=== PATIENT | female | born 1975 | race Caucasian/White ===

== ENCOUNTER 2017-06-15 09:21 | Emergency (ER) | payer MEDICAID ==
[~2017-06-15] VITALS: Wt 61.0 kg
[~2017-06-15 09:21] MED LIST: NO MEDS TAKEN
[2017-06-15] MEDS ORDERED: ACETAMINOPHEN 325 MG TAB PO ONE (10:00)
--- NOTE | 2017-06-15 10:25 | RADRPT ---
PROCEDURE: XR Chest. CLINICAL INDICATION: cough TECHNIQUE: Single frontal view of the chest was obtained COMPARISON: None FINDINGS: The heart and mediastinum are within normal limits. There is a right lower lobe infiltrate. There is no pleural effusion or pneumothorax. RPTAT: AA IMPRESSION: Right lower lobe infiltrate. .August Navarro MD, MD Date Time Electronically viewed and signed by .August Navarro MD, on 06/15/2017 10:24 .S/
[2017-06-15] MEDS ORDERED: BENZ100C70 PO (10:43)
[2017-06-15] MEDS ORDERED: ACET500C5 PO (10:43)
[2017-06-15] MEDS ORDERED: AZIT250T94 PO (10:43)
--- NOTE | 2017-06-15 10:51 | ERD ---
ER Documentation Chief Complaint Date/Time DATE: 06/15/17 TIME: 10:47 Chief Complaint COUGH, CONGESTION, FEVER, ONSET 3 WEEKS HPI 42-year-old female patient with a past medical history of hyperlipidemia presents to the ED complaining of cough, congestion, fever intermittently for 3 weeks. Reports that she has tried taking neck and to call cough medication without relief of her symptoms. Reports that the cough is dry and constant. States that it was a gradual onset. Denies any recent traveling. Reports that she also has body aches. States that she has a sore throat and her symptoms have caused her to have decreased appetite however is still tolerating oral intake and eating appropriately. States that when she coughs, it causes her to have chest pain. Denies any dyspnea on exertion, wheezing, abdominal pain, nausea, vomiting, diarrhea, pleuritic chest pain, orthopnea, leg swelling. ROS All systems reviewed and are negative except as per history of present illness. Medications Home Meds Active Scripts Acetaminophen* (Tylophen*) 500 Mg Capsule, 1 CAP PO Q6H Y for PAIN AND OR ELEVATED TEMP, #20 CAP Prov:ROSANNA FAULKNER PA-C 06/15/17 Benzonatate* (Tessalon Perle*) 100 Mg Capsule, 100 MG PO Q8H Y for COUGH, #20 CAP Prov:ROSANNA FAULKNER PA-C 06/15/17 Azithromycin* (Zithromax*) 250 Mg Tablet, 250 MG PO .ZPACK DIRECTED, #6 TAB TAKE 500 MG (2 TABS) THE FIRST DAY THEN 250 MG (1 TAB) DAYS 2-5 Prov:ROSANNA FAULKNER PA-C 06/15/17 Reported Medications [No Meds Taken] No Conflict Check 03/12/12 Allergies Allergies: Coded Allergies: No Known Allergy (Unverified , 09/24/12) PMhx/Soc Medical and Surgical Hx: pt denies Medical Hx History of Surgery: Yes (3 c-sections) Anesthesia Reaction: No Hx Neurological Disorder: No Hx Respiratory Disorders: No Hx Cardiac Disorders: No Hx Psychiatric Problems: No Hx Miscellaneous Medical Probl: Yes (hx of bronchitis) Hx Alcohol Use: No Hx Substance Use: No Hx Tobacco Use: No Smoking Status: Never smoker Physical Exam Vitals Vital Signs Date Time Temp Pulse Resp B/P Pulse Ox O2 Delivery O2 Flow Rate FiO2 06/15/17 09:25 100.4 107 19 136/88 98 Physical Exam Const: Rbj-qda-lqatyzevb, well-nourished. In no acute distress. Head: Atraumatic, normocephalic Eyes: Normal Conjunctiva without injection. No purulent discharge. PERRL. EOMI ENT: Normal external ear. Ear canal without erythema. Tympanic membrane pearly lopez without effusion or bulging. Nasal canal clear with normal turbinates. Moist oropharynx without tonsillar exudates. Non-erythematous pharynx. Uvula midline. No drooling. No trismus. Neck: Full range of motion. No meningismus. No cervical lymphadenopathy. Resp: Clear to auscultation bilaterally. No wheezing, rhonchi, rales, or crackles. No accessory muscle use. No retractions. Cardio: Regular rate and rhythm. No murmurs, rubs or gallops. Abd: Soft, non tender, non distended. Normal bowel sounds. No palpable masses. No rebound tenderness. No guarding. Skin: No petechiae or rashes Back: No midline tenderness. No CVA tenderness. Ext: No cyanosis, or edema. Neur: Awake and alert. Psych: Normal Mood and Affect Results 24 hrs Current Medications Medications (Trade) Dose Ordered Sig/Mohini Route PRN Reason Start Time Stop Time Status Last Admin Dose Admin Acetaminophen (Tylenol Tab) 650 mg ONCE ONCE PO 06/15/17 10:00 06/15/17 10:01 DC 06/15/17 10:00 Procedures/MDM 42-year-old female patient with a past medical history of hyperlipidemia presents to the ED complaining of cough, congestion, fever intimately for 3 weeks. Patient has a fever of 100.4. Tylenol was ordered to further downtrend patient's temperature. Chest x-ray was ordered to further evaluate patient. Chest x-ray showed a right lower lobe infiltrate. Patient symptoms and chest x- ray findings are consistent with pneumonia. Patient is afebrile and has normal vital signs. Patient's physical exam include lungs which were clear to auscultation and a normal pulse oximetry. There is a low suspicion for pneumothorax, mononucleosis, pulmonary embolism, epiglottitis, otitis media, otitis externa, viral/strep pharyngitis, sinusitis, peritonsillar abscess, mastoiditis, retropharyngeal abscess, meningitis, sepsis, acute abdomen or other emergent conditions. Discharge medications: Zithromax, Tessalon Perles, Tylenol Patient was instructed to return to the ED for any new or worsening symptoms. They should otherwise follow up with the primary care provider within 1-2 days. The patient's questions were answered at the time of discharge. Patient understood and agreed with discharge management. Departure Diagnosis: Primary Impression: Pneumonia Pneumonia type: due to unspecified organism Laterality: right Lung location : unspecified part of lung Qualified Code: J18.9 - Pneumonia of right lung due to infectious organism, unspecified part of lung Condition: Stable Patient Instructions: Pneumonia (Adult) [facility] Usted se carter hecho un examen mdico de control que le indica que no est en max condicin que requiera tratamiento urgente en el Departamento de Emergencia. Un estudio ms profundo y el tratamiento de estevez condicin pueden esperar sin ningn riesgo hasta que usted sea atendida/o en el consultorio de estevez mdico o max cl jules. Es responsabilidad suya arreglar max kathryn para el seguimiento del eugenia. MANEJO DE CONDICIONES NO URGENTES EN EL FUTURO 1) Si usted tiene un mdico de atencin primaria: Usted debera llamar a estevez mdico de atencin primaria antes de venir al departamento de emergencia. Despus de las horas de consultorio, estevez doctor o estevez asociado/a est disponible por telfono. El mdico o enfermero de fritz en el servicio telefnico puede asesorarle por cass medio para atender el problema, o eugenia contrario se puede programar max kathryn. 2) Si usted no tiene un mdico de atencin primaria: Llame al mdico o clnica de referencia que aparece abajo maryann las horas de consultorio para hacer max kathryn para que le vean. CLINICAS: [facility] [phone] [facility] [phone] [facility] [phone] [address] [facility] [phone] [facility] [phone] [facility]. [phone] [facility] () Usted se carter hecho un examen mdico de control que le indica que no est en max condicin que requiera tratamiento urgente en el Departamento de Emergencia. Un estudio ms profundo y el tratamiento de estevez condicin pueden esperar sin ningn riesgo hasta que usted sea atendida/o en el consultorio de estevez mdico o max cl jules. Es responsabilidad suya arreglar max kathryn para el seguimiento del eugenia. MANEJO DE CONDICIONES NO URGENTES EN EL FUTURO 1) Si usted tiene un mdico de atencin primaria: Usted debera llamar a estevez mdico de atencin primaria antes de venir al departamento de emergencia. Despus de las horas de consultorio, estevez doctor o estevez asociado/a est disponible por telfono. El mdico o enfermero de fritz en el servicio telefnico puede asesorarle por cass medio para atender el problema, o eugenia contrario se puede programar max kathryn. 2) Si usted no tiene un mdico de atencin primaria: Llame al mdico o condado institucions de referencia que aparece abajo maryann las horas de consultorio para hacer max kathryn para que le vean. SI USTED NO PUEDE PAGAR PARA ROSEY UN MEDICO puede ir a: [facility] [address] [place] [address] [facility] [address] [place] [address] [facility] [address] [place] [address] [facility] [address], [place] [id number] [facility]SPECIALT[facility] Additional Instructions: Llame al doctor MAANA y bruce max KATHRYN PARA DENTRO DE 2-3 VAZ.Dgale a la secretaria que nosotros le instruimos hacer esta kathryn.Avise o llame si estevez condicin se empeora antes de la kathryn. Regresa aqui si peor o no mejor. ROSANNA FAULKNER PA-C Jun 15, 2017 10:51
== END 2017-06-15 11:22 | disposition home or self-care (01) ==
LOC: FTE 09:21
DX: J18.9 Pneumonia, unspecified organism (principal)
CPT/HCPCS: 71010; Z7610

== ENCOUNTER 2018-11-25 15:30 | Emergency (ER) | payer BC, MEDICAID, OTHER ==
[~2018-11-25] VITALS: Ht 157.5 cm; Wt 60.6 kg
[~2018-11-25 15:30] MED LIST changes: +ACET500C5 PO; +AZIT250T PO; +BENZ-6 PO
[2018-11-25 15:34] VITALS: Ht 157.5 cm; Wt 60.6 kg
[2018-11-25] MEDS ORDERED: ALBUTEROL 0.083% (NEB) 2.5 MG/3 ML AMP HHN STA (15:58)
--- NOTE | 2018-11-25 15:59 | ERD ---
ER Documentation Chief Complaint Chief Complaint cough, congestion & body aches x2 wks HPI 43-year-old female, employee at [employer], presents the emergency department, complaining of 2 weeks with upper respiratory symptoms that are getting worse during the last 2 days. The patient reports subjective fever, productive cough and general malaise. She has been taking rxvm-bgf-[id number] medications without improvement of the symptoms. ROS All systems reviewed and are negative except as per history of present illness. Medications Home Meds Active Scripts Ibuprofen* (Motrin*) 400 Mg Tab, 400 MG PO Q8, #15 TAB Prov:RAJESH CARRILLO MD 11/25/18 Promethazine Hcl* (Promethazine Hcl* Syrup) 6.25 Mg/5 Ml Syrup, 6.25 MG PO QHS PRN for COUGH, #60 ML Prov:RAJESH CARRILLO MD 11/25/18 Azithromycin* (Zithromax*) 250 Mg Tablet, 250 MG PO .ZPACK DIRECTED, #6 TAB TAKE 500 MG (2 TABS) THE FIRST DAY THEN 250 MG (1 TAB) DAYS 2-5 Prov:RAJESH CARRILLO MD 11/25/18 Acetaminophen* (Tylophen*) 500 Mg Capsule, 1 CAP PO Q6H PRN for PAIN AND OR ELEVATED TEMP, #20 CAP Prov:ROSANNA FAULKNER PA-C 06/15/17 Benzonatate* (Tessalon Perle*) 100 Mg Capsule, 100 MG PO Q8H PRN for COUGH, #20 CAP Prov:ROSANNA FAULKNER PA-C 06/15/17 Azithromycin* (Zithromax*) 250 Mg Tablet, 250 MG PO .ZPACK DIRECTED, #6 TAB TAKE 500 MG (2 TABS) THE FIRST DAY THEN 250 MG (1 TAB) DAYS 2-5 Prov:ROSANNA FAULKNER PA-C 06/15/17 Reported Medications [No Meds Taken] No Conflict Check 03/12/12 Allergies Allergies: Coded Allergies: No Known Allergy (Unverified , 09/24/12) PMhx/Soc History of Surgery: Yes (3 c-sections) Anesthesia Reaction: No Hx Neurological Disorder: No Hx Respiratory Disorders: No Hx Cardiac Disorders: No Hx Psychiatric Problems: No Hx Miscellaneous Medical Probl: Yes (hx of bronchitis) Hx Alcohol Use: No Hx Substance Use: No Hx Tobacco Use: No Smoking Status: Never smoker FmHx Family History: diabetes, coronary disease Physical Exam Vitals Vital Signs Date Temp Pulse Resp B/P (MAP) Pulse Ox O2 O2 Flow FiO2 Time Delivery Rate 11/25/18 98.3 86 20 136/74 98 Room Air 17:30 (94) 11/25/18 20 99 21 16:19 11/25/18 98.5 81 18 151/73 98 15:34 (99) Physical Exam Const: No acute distress Head: Atraumatic Eyes: Normal Conjunctiva ENT: Normal External Ears, Nose and Mouth. Neck: Full range of motion. No meningismus. Resp: Rhonchi to auscultation bilaterally Cardio: Regular rate and rhythm, no murmurs Abd: Soft, non tender, non distended. Normal bowel sounds Skin: No petechiae or rashes Back: No midline or flank tenderness Ext: No cyanosis, or edema Neur: Awake and alert Psych: Normal Mood and Affect Results 24 hrs Current Medications Medications Dose Sig/Mohini Start Time Status Last (Trade) Ordered Route PRN Stop Time Admin Dose Reason Admin Albuterol 5 mg ONCE STAT 11/25/18 DC 11/25/18 (Proventil HHN 15:58 16:19 0.083% (Neb)) 11/25/18 16:01 Ipratropium 0.5 mg ONCE ONCE 11/25/18 DC 11/25/18 Byers HHN 16:00 16:18 (Atrovent 11/25/18 16:01 0.02% (Neb)) Procedures/MDM Vital signs stable, no respiratory distress. Differential diagnosis include but not limited to: Respiratory infection bacterial/viral/fungal. Influenza, croup, bronchiolitis, pneumonitis, a llergies, GERD. Less likely foreign body aspiration, cardiac related. Physical examination and clinical presentation consistent most likely with viral infection with early superimposed bacterial infection. During the ED course the patient remained stable, no new complaints. Treatment options and clinical impression discussed with the patient who agrees with management. The patient is stable to be treated outpatient and will be discharged home. Some side effects of prescribed medications (headache, rash, nausea, vomiting, diarrhea, interactions with other medications) were reviewed. The patient needs to follow up with the primary care provider in the next 48h. If symptoms persist, worsen or new symptoms develop, then patient should return to the ED immediately. Disclaimer: Inadvertent spelling and grammatical errors are likely due to EHR/dictation software use and do not reflect on the overall quality of patient care. Also, please note that the electronic time recorded on this note does not necessarily reflect the actual time of the patient encounter. Departure Diagnosis: Primary Impression: Cough Additional Impression: Superimposed infection Condition: Stable Additional Instructions: Muchas sara por [facility] para estevez servicio. Esperamos que en estevez visita a la tamia de emergencia estevez problema medico haya sido solucionado y que se sienta mucho mejor. Para estar seguros que estevez mejoria sigue en proceso, le pedimos el favor de hacer max li de seguimiento medico con estevez doctor primario en los proximos 2-4 curry. Lleve con usted estos documentos y las medicinas recetadas. Si kady sintomas empeoran, NO SE ESPERE, por favor regrese a tamia de emergencia INMEDIATAMENTE. En eugenia que usted no tenga un mdico de atencin primaria: Llame al mdico o clnica comunitaria de referencia que aparece abajo maryann las horas de consultorio para hacer max li para que le vean. CLINICAS: [facility] [phone] [facility] [phone] [facility] [phone] [facility] [phone] [address] [place] [id number] [phone] [facility]. [phone] MD Nov 25, 2018 15:59
[2018-11-25] MEDS ORDERED: IPRATROPIUM (NEB) 0.5 MG/2.5 ML AMP HHN ONE (16:00)
[2018-11-25] MEDS ORDERED: PROM6.2515 PO (17:25)
[2018-11-25] MEDS ORDERED: IBUP-1561 PO (17:25)
[2018-11-25] MEDS ORDERED: AZIT250T PO (17:25)
[2018-11-25 17:30] VITALS: BP 136/74; PULSE 86; RESP 20
== END 2018-11-25 17:33 | disposition home or self-care (01) ==
LOC: FTE 15:30
DX: A49.9 Bacterial infection, unspecified (principal)
CPT/HCPCS: 94664

== ENCOUNTER → 2019-03-20 | Outpatient (CLI) | payer BC ==
[~2019-03-20] MED LIST changes: +IBUP-1561 PO; +PROM6.2515 PO
== END | disposition home or self-care (01) ==
LOC: RAD 15:45
PROVIDERS: ATTEND Internal Medicine
DX: M54.5 Low back pain (principal)
CPT/HCPCS: 72100

== ENCOUNTER 2019-04-22 07:15 | Emergency (ER) | payer BC ==
[~2019-04-22] VITALS: Ht 160 cm; Wt 61.4 kg
[2019-04-22 07:23] VITALS: BP 151/73; PULSE 71; RESP 18; Ht 160 cm; Wt 61.4 kg
[2019-04-22] MEDS ORDERED: PSEU-79 PO (07:40)
[2019-04-22] MEDS ORDERED: BENZ-6 PO (07:40)
[2019-04-22] MEDS ORDERED: NAPR-985 PO (07:40)
[2019-04-22] MEDS ORDERED: D-ME473S2 PO (07:40)
--- NOTE | 2019-04-22 07:44 | ERD ---
ER Documentation Chief Complaint Chief Complaint SORETHROAT AND RT EAR PAIN X3 DAYS HPI 44-year-old female presenting with a sore throat runny nose and mild cough. No fevers. She has not taken medications for her symptoms. The symptoms been going for 3 days. Has a mild headache with congestion pain. Denies medical problems. NKDA. Surgical history denies. Social history denies ROS All systems reviewed and are negative except as per history of present illness. Medications Home Meds Active Scripts Naproxen* (Naprosyn*) 500 Mg Tablet, 500 MG PO BID PRN for PAIN AND/OR INFLAMMATION, #30 TAB Prov:SURINDER NEWTON PA-C 04/22/19 Dextromethorphan Hb-Promethazine Hcl* (Promethazine DM* Syrup) 473 Ml Syrup, 5 ML PO Q6 PRN for COUGH, #100 ML Prov:SURINDER NEWTON PA-C 04/22/19 Benzonatate* (Tessalon Perle*) 100 Mg Capsule, 100 MG PO Q8H PRN for COUGH, #30 CAP Prov:SURINDER NEWTNO PA-C 04/22/19 Pseudoephedrine Hcl* (Suphedrin*) 30 Mg Tablet, 30 MG PO Q6 PRN for CONGESTION, #30 TAB Prov:SURINDER NEWTON PA-C 04/22/19 Ibuprofen* (Motrin*) 400 Mg Tab, 400 MG PO Q8, #15 TAB Prov:RAJESH CARRILLO MD 11/25/18 Promethazine Hcl* (Promethazine Hcl* Syrup) 6.25 Mg/5 Ml Syrup, 6.25 MG PO QHS PRN for COUGH, #60 ML Prov:RAJESH CARRILLO MD 11/25/18 Azithromycin* (Zithromax*) 250 Mg Tablet, 250 MG PO .HECTOR DIRECTED, #6 TAB TAKE 500 MG (2 TABS) THE FIRST DAY THEN 250 MG (1 TAB) DAYS 2-5 Prov:RAJESH CARRILLO MD 11/25/18 Acetaminophen* (Tylophen*) 500 Mg Capsule, 1 CAP PO Q6H PRN for PAIN AND OR ELEVATED TEMP, #20 CAP Prov:ROSANNA FAULKNER PA-C 06/15/17 Benzonatate* (Tessalon Perle*) 100 Mg Capsule, 100 MG PO Q8H PRN for COUGH, #20 CAP Prov:ROSANNA FAULKNER NOEMY 06/15/17 Azithromycin* (Zithromax*) 250 Mg Tablet, 250 MG PO .ZPACK DIRECTED, #6 TAB TAKE 500 MG (2 TABS) THE FIRST DAY THEN 250 MG (1 TAB) DAYS 2-5 Prov:ROSANNA FAULKNEREmilia SALGUERO 06/15/17 Reported Medications [No Meds Taken] No Conflict Check 03/12/12 Allergies Allergies: Coded Allergies: No Known Allergy (Unverified , 09/24/12) PMhx/Soc History of Surgery: Yes (3 c-sections) Anesthesia Reaction: No Hx Neurological Disorder: No Hx Respiratory Disorders: No Hx Cardiac Disorders: No Hx Psychiatric Problems: No Hx Miscellaneous Medical Probl: Yes (hx of bronchitis) Hx Alcohol Use: No Hx Substance Use: No Hx Tobacco Use: No FmHx Family History: No diabetes, No coronary disease, No other Physical Exam Vitals Vital Signs Date Temp Pulse Resp B/P (MAP) Pulse Ox O2 O2 Flow FiO2 Time Delivery Rate 04/22/19 98.1 71 18 151/73 98 07:23 (99) Physical Exam GENERAL: The patient is well-appearing, well-nourished, in no acute distress HEENT: Atraumatic. Conjunctivae are pink. Pupils equal, round, and reactive to light. There is no scleral icterus. Tympanic membranes clear bilaterally. Oropharynx clear. NECK: C-spine is soft and supple. There is no meningismus. There is no cervical lymphadenopathy. CHEST: Clear to auscultation bilaterally. There are no rales, wheezes or rhonch i. HEART: Regular rate and rhythm. No murmurs, clicks, rubs or gallops. Procedures/MDM MDM: 44-year-old female presenting with a sore throat and runny nose. I have low suspicion for bacterial infection. Patient symptoms are likely associated with viral syndrome. Patient is discharged with strict ER precautions and told to follow-up with primary care within 1 to 2 days for close evaluation. Patient is told if symptoms change or worsen to return immediately to the ER. All questions answered at discharge Departure Diagnosis: Primary Impression: URI, acute Condition: Stable Patient Instructions: Uri, Viral, No Abx (Adult) Referrals: [facility] YOU HAVE RECEIVED A MEDICAL SCREENING EXAM AND THE RESULTS INDICATE THAT YOU DO NOT HAVE A CONDITION THAT REQUIRES URGENT TREATMENT IN THE EMERGENCY DEPARTMENT. FURTHER EVALUATION AND TREATMENT OF YOUR CONDITION CAN WAIT UNTIL YOU ARE SEEN IN YOUR DOCTORS OFFICE WITHIN THE NEXT 1-2 DAYS. IT IS YOUR RESPONSIBILITY TO MAKE AN APPOINTMENT FOR FOLOW-UP CARE. IF YOU HAVE A PRIMARY DOCTOR --you should call your primary doctor and schedule an appointment IF YOU DO NOT HAVE A PRIMARY DOCTOR YOU CAN CALL OUR PHYSICIAN REFERRAL HOTLINE AT IF YOU CAN NOT AFFORD TO SEE A PHYSICIAN YOU CAN CHOSE FROM THE FOLLOWING [facility] [address] [facility] [address] [facility] [address] [facility] [address] [facility] [address] [facility]. [facility] [address] Additional Instructions: FOLLOW UP WITH YOUR PRIMARY CARE PHYSICIAN TOMORROW.Return to this facility if you are not improving as expected. SURINDER NEWTON PA-C Apr 22, 2019 07:44
== END 2019-04-22 07:51 | disposition home or self-care (01) ==
LOC: EEVIPCON 07:15 → FTE 07:15
DX: J06.9 Acute upper respiratory infection, unspecified (principal)
CPT/HCPCS: 99283